=== PATIENT | female | born 1970 | race African-American/Black ===

== ENCOUNTER → 2020-01-23 10:59 | Outpatient (CLI) | payer OTHER, SELFPAY ==
--- NOTE | ~2020-01-23 | US_ITS ---
EXAMINATION: US thyroid DATE: 01/23/2020 11:16 INDICATION: Nontoxic goiter TECHNIQUE: Multiple ultrasound images of the thyroid were obtained. COMPARISON: Neck CT dated 01/25/09 FINDINGS: The right thyroid lobe measures 4.5 x 1.8 x 1.3 cm. The left thyroid lobe measures 3.8 x 1.0 x 1.3 c m. There is a single well-defined solid hypoechoic nodule measuring 4 x 3 x 5 mm without internal ec hogenic foci (TI-RADS 4, moderately suspicious , FNA if >=1.5 cm, annual followup is >1 cm) at the ju nction of the right thyroid lobe and isthmus. There is normal echotexture, echogenicity and vascular flow throughout the thyroid gland. IMPRESSION: 1. 5 mm TI-RADS 4 right thyroid nodule which remains below size threshold for biopsy or follow-up. Re commend clinical followup with repeat imaging if there are changes on physical exam. Reviewed, dictated and finalized at location A. IMPRESSION: 1. 5 mm TI-RADS 4 right thyroid nodule which remains below size threshold for b iopsy or follow-up. Recommend clinical followup with repeat imaging if there ar e changes on physical exam.
== END ==
PROVIDERS: Visit Provider Internal Medicine Endocrinology, Diabetes & Metabolism
DX: E04.9 Nontoxic goiter, unspecified (principal)
CPT/HCPCS: 76536

== ENCOUNTER → 2021-08-13 14:21 | Outpatient (CLI) | payer OTHER, SELFPAY ==
--- NOTE | ~2021-08-13 | MM_ITS ---
EXAMINATION: MM screening alexandra BI w george HISTORY: Screening mammogram TECHNIQUE: Craniocaudal and mediolateral oblique 3-D tomosynthesis images were obtained and synthetic 2-D images were generated. CAD analysis was submitted and interpreted. COMPARISON: 11/23/2018 bilateral digital screening mammogram BREAST PARENCHYMAL COMPOSITION: The breasts are heterogeneously dense, which may obscure small masses . FINDINGS: There is no evidence of suspicious mass, calcification, or architectural distortion to sugg est malignancy in either breast. There has been no suspicious interval change. IMPRESSION: 1. No mammographic evidence of malignancy. 2. Recommend routine screening mammography in one year. BI-RADS Category 1: Negative Reviewed, dictated and finalized at location A.
== END ==
PROVIDERS: PCP Nurse Practitioner Family; Visit Provider Nurse Practitioner Family
DX: Z12.31 Encounter for screening mammogram for malignant neoplasm of breast (principal)
CPT/HCPCS: 77063; 77067

== ENCOUNTER 2022-01-19 08:48 | Outpatient (CLI) | payer OTHER, SELFPAY ==
--- NOTE | ~2022-01-19 | DEXA_ITS ---
Bone Density Report Name: GERI RODGERS Age: 51 Sex: Female Ethnicity: Black Date of : 1970 Indication: postmenopausal; parental hip fracture; hysterectomy; rheumatoid arthritis; Referring Provider: SIERRARAMON Wright Study: Bone densitometry was performed. Exam Date: January 19, 2022 Accession number: [id number] Bone Density: Region BMD T-score Z-score Classification AP Spine (L1, L2) 1.026 0.4 0.4 Normal Femoral Neck (Left) 0.927 0.7 0.4 Normal Total Hip (Left) 1.039 0.8 0.4 Normal Total Hip Bilateral Avg 0.978 0.3 0.0 Normal Femoral Neck (Right) 0.871 0.2 0.0 Normal Total Hip (Right) 0.915 -0.2 -0.4 Normal World Health Organization criteria for BMD impression classify patients as: Normal (T-score at or above -1.0), Osteopenia (T-score between -1.0 and -2.5), or Osteoporosis (T-score at or below -2.5). 10-year Fracture Risk: FRAX not reported because: All T-scores for Spine Total, Hip Total, Femoral Neck at or above -1.0 Clinical Information Provided by Patient: Parent has had a hip fracture Has rheumatoid arthritis Has used the following medications: Vitamin D Has the following medical conditions: Hysterectomy, RA Patient maximum height was 66 Menopause Age: 33 No regular weight bearing exercise Does not regularly consume dairy products Drinks caffeinated beverages Onset of menses at age 16 Number of children 0 Impression: The patient has normal bone mass. The patient has risk factors, including: parental hip fracture. Discussion: BONE DENSITY IS ABOVE THE MINIMUM DESIRABLE LEVEL AT ALL SKELETAL SITES TESTED. This patient?s bone mineral density is above the minimum desirable level (T-score -1.0 or better) at all sites measured. The patient should follow a healthful lifestyle (good nutrition with adequate calcium and vitamin D, and appropriate weight-bearing exercise). Follow-Up: Consider repeating this study in 5 years or sooner if there is some new clinical indication. Reported by: [facility] on 01/19/2022 9:12:00 AM. Reviewed, dictated and finalized at location AAndria FRENCH
== END 2022-01-19 08:49 | disposition home or self-care (01) ==
LOC: ANHIMG 08:52
PROVIDERS: PCP Nurse Practitioner Family; Visit Provider Nurse Practitioner Family
DX: Z78.0 Asymptomatic menopausal state (principal)
CPT/HCPCS: 77080

== ENCOUNTER 2022-03-15 11:12 | Emergency (ER) | payer BC, SELFPAY ==
[2022-03-15] VITALS (27 sets, daily range): BP systolic 155–180; BP diastolic 86–101; PULSE 94–102; RESP 15–23; TEMP 36.9; O2SAT 96–100
--- NOTE | ~2022-03-15 | XR_ITS ---
EXAMINATION: XR chest 1V portable INDICATION: Cough and congestion, fever TECHNIQUE: Portable AP chest at 1152 hours COMPARISON: 05/08/2012 FINDINGS: The lungs are free of acute opacities. There is no pleural effusion or pneumothorax. The ca rdiomediastinal silhouette is normal. The visualized bones and soft tissues are unremarkable. IMPRESSION: 1. No acute cardiopulmonary abnormality. Reviewed, dictated and finalized at location A.
[2022-03-15 12:30] LABS: Influenza A QL RT-PCR Negative (Negative); Influenza B QL RT-PCR Negative (Negative); SARS-CoV-2 RNA PCR Negative
[2022-03-15] MEDS: ALBUTEROL SULFATE NEB 2.5 MG/0.5 ML INH 5 MG INHALATION (12:59)
[2022-03-15] MEDS: IPRATROPIUM BR 0.02% INH SOLN 0.5 MG/2.5 ML VIAL INHALATION (12:59)
--- NOTE | 2022-03-15 13:59 | ED.URI ---
HPI - URI/Sore Throat General Chief Complaint: Upper Respiratory Infection Stated Complaint: SOB, cough, fever Time Seen by Provider: 03/15/22 12:34 History of Present Illness HPI Narrative: Patient is a 51-year-old female who presents ER with cough and cold symptoms. Ongoing for 3 days. Associate with sinus congestion with postnasal drip and productive cough. Endorses fevers. No chest pain or chest pressure. No loss consciousness. Had asthma as a child but does not have lung disease currently. No alleviating factors. Has tried [id number] decongestants. Related Data Home Medications Medication Instructions Recorded Confirmed amitriptyline 09/17/19 amitriptyline 09/24/19 amlodipine 09/24/19 atorvastatin 09/24/19 cholecalciferol (vitamin D3) unit 09/24/19 [Dialyvite Vitamin D3 Max] dapagliflozin [Farxiga] mg 09/24/19 escitalopram oxalate mg 09/24/19 fenofibrate mg 09/24/19 folic acid 09/24/19 hydrocodone-acetaminophen 09/24/19 hydroxychloroquine 09/24/19 insulin lispro protamin-lispro SUBCUT 09/24/19 [Humalog Mix 75-25 KwikPen] lisinopril 09/24/19 losartan 09/24/19 metformin mg PO 09/24/19 methotrexate sodium 09/24/19 metronidazole VAGINAL 09/24/19 pregabalin 09/24/19 Allergies Allergy/AdvReac Type Severity Reaction Status Date / Time Penicillins Allergy Unknown Stopped Verified 11/30/19 17:16 Breathing Review of Systems Review of Systems: All systems reviewed & are unremarkable except as noted in HPI and below Constitutional: Constitutional: Reports chills, Reports fatigue and Reports fever(s) ENT: Reports nasal congestion and Reports sore throat Cardiovascular: Cardiovascular: Denies chest pain, Denies rapid heart rate and Denies radiating jaw, neck or arm pain Respiratory: Respiratory: Denies cough, Denies dyspnea and Denies wheezing Gastrointestinal: Gastrointestinal: Denies abdominal pain, Denies nausea and Denies vomiting [facility] Past Medical History Medical History (Updated 03/15/22 @ 14:04 by Octaviano Hull MD) Anemia Asthma Diabetes GERD (gastroesophageal reflux disease) Hyperlipemia Hypertension Pancreatitis Rheumatoid arthritis UTI (urinary tract infection) Surgical History Surgical History H/O left knee surgery History of cholecystectomy History of hysterectomy History of tonsillectomy Family History Family History (Updated 06/05/16 @ 23:19 by DOCTOR UNKNOWN) Father Family history of cataracts Asthma Family history of arthritis Family history of chronic obstructive pulmonary disease Family history of congestive heart failure Mother Cerebrovascular accident Family history of diabetes mellitus in first degree relative Sibling Family history of lung cancer Social History Social History Smoking status: Never smoker Alcohol intake: never Gender identity (if verbalized by the patient): Female Exam Narrative: GENERAL: Well-appearing, well-nourished, and in no acute distress. HEAD: Normocephalic, atraumatic. ENT: Mucous membranes moist. CHEST: End expiratory wheezing/Rales. No respiratory distress. HEART: Regular rate and rhythm. Normal peripheral pulses. EXTREMITIES: Normal range of motion. No edema. SKIN: Warm, dry, no rash. NEURO: Alert and oriented x3. PSYCH: Normal mood and affect. Course Course Emergency Course: Patient resting comfortably. Feels improved with nebulizer treatment. Discharge with steroids and albuterol. Discussed results. Vital Signs Vital signs: Vital Signs Temperature 98.4 F 03/15/22 11:19 Pulse Rate 102 H 03/15/22 11:19 Respiratory Rate 20 03/15/22 11:19 Blood Pressure 178/90 H 03/15/22 11:19 Pulse Oximetry 98 03/15/22 11:19 Temperature 98.4 F 03/15/22 11:19 Pulse Rate 98 03/15/22 13:10 Respiratory Rate 18 03/15/22 13:10 Bl
== END 2022-03-15 14:20 | disposition home or self-care (01) ==
PROVIDERS: Emergency Provider Emergency Medicine; PCP Nurse Practitioner Family
DX: B34.9 Viral infection, unspecified (principal); J20.9 Acute bronchitis, unspecified; E11.9 Type 2 diabetes mellitus without complications; J45.909 Unspecified asthma, uncomplicated; I10 Essential (primary) hypertension; E78.5 Hyperlipidemia, unspecified; M06.9 Rheumatoid arthritis, unspecified; Z87.440 Personal history of urinary (tract) infections; Z86.2 Personal history of diseases of the blood and blood-forming organs and certain disorders involving the immune mechanism; Z79.84 Long term (current) use of oral hypoglycemic drugs; Z79.4 Long term (current) use of insulin
CPT/HCPCS: 71045; 87502; 94640; 99283; C9803; U0003; U0005

== ENCOUNTER 2022-08-23 13:57 | Emergency (ER) | payer BC, SELFPAY ==
[2022-08-23 14:48] VITALS: BP 129/75; PULSE 105; RESP 20; TEMP 36.4; O2SAT 100
--- NOTE | 2022-08-23 14:53 | ECG_ITS ---
Measurements Intervals [place] Rate: 103 P: 55 NM: 152 QRS: 25 QRSD: 107 T: 60 QT: 329 QTc: 432 Interpretive Statements SINUS TACHYCARDIA BASELINE ARTIFACT NONSPECIFIC T-WAVE ABNORMALITY BORDERLINE ECG COMPARED TO ECG 09/24/2019 16:56:26 T-WAVE ABNORMALITY NOW PRESENT Electronically Signed On 08-23-2022 16:03:03 CDT by Tushar Oliveros M.D.
[2022-08-23 15:07] LABS: Basophils Absolute Auto 0.1 K/mm3 (0.0-0.1); Basophils Percent Auto 1.4 % (0.2-1.2); Eosinophils Absolute Auto 0.1 K/mm3 (0-0.3); Eosinophils Percent Auto 0.8 % (0-4.4); Hematocrit 31.8 % (37.0-47.0); Hemoglobin 9.6 g/dL (12.0-15.0); Immature Granulocyte Absolute 0.03 K/mm3 (0.00-0.031); Immature Granulocyte Percent A 0.3 % (0-0.5); Immature Platelet Fraction Pct 10.9 % (0.9-11.2); Lymphocytes Absolute Auto 1.39 K/mm3 (0.9-3.2); Lymphocytes Percent Auto 15.4 % (18.3-44.2); Mean Corpuscular HGB Conc 30.2 g/dl (32-36); Mean Corpuscular Hemoglobin 18.4 pg (26-34); Monocytes Absolute Auto 0.5 K/mm3 (0.1-0.6); Monocytes Percent Auto 5.2 % (2.6-8.5); Neutrophils Absolute Auto 6.9 K/mm3 (1.3-6.7); Neutrophils Percent Auto 76.9 % (45.5-73.1); Platelet Count Result 348 k/mm3 (150-375); Red Blood Count 5.21 M/mm3 (4.2-5.4); Red Cell Distribution Width 17.8 % (11.5-14.5)
[2022-08-23 15:15] LABS: Alanine Aminotransferase 12 U/L (6-35); Albumin Level 4.6 g/dL (3.5-5.1); Alkaline Phosphatase 98 U/L (38-126); Anion Gap 12 mmol/L (8-16); Aspartate Amino Transferase 22 U/L (14-36); Bilirubin,Total 0.4 mg/dL (0.2-1.3); Blood Urea Nitrogen 16 mg/dL (7-17); Calcium 9.3 mg/dL (8.4-10.2); Carbon Dioxide 24 mmol/L (22-30); Chloride 105 mmol/L (98-107); Estimated CRCL calculation 72 ml/min; Estimated Glomerular Filt Rate > 60; Glucose 115 mg/dL (65-110); Potassium 3.5 mmol/L (3.4-5.0); Sodium 141 mmol/L (137-145)
[2022-08-23 15:47] LABS: Platelet Estimate Adequate (Adequate)
[2022-08-23 15:48] LABS: Anisocytosis 2+ (NORMAL); Hypochromasia 1+ (NORMAL); Schistocytes None Seen (NORMAL)
--- NOTE | 2022-08-23 19:10 | PC.NURSE ---
patient called for room placement without answer at this time.
== END 2022-08-23 19:10 | disposition left against medical advice (07) ==
PROVIDERS: Emergency Provider Emergency Medicine; PCP Nurse Practitioner Family
DX: R42 Dizziness and giddiness (principal)
CPT/HCPCS: 36415; 80053; 85025; 85055; 93005; 99199

== ENCOUNTER 2022-09-13 11:31 | Observation (INO) | payer BC, SELFPAY ==
--- NOTE | ~2022-09-13 | XR_ITS ---
XR knee LT min 4V DATE: 09/13/2022 13:53 INDICATION: Pain for 1.5 months. Swelling. Rheumatoid arthritis. TECHNIQUE: [place] and standing AP and lateral views COMPARISON: None FINDINGS: There is moderate suprapatellar knee joint effusion. There is osteopenia. No fracture or dislocation, periosteal reaction or bone destruction, radiopaque intra-articular loose body or chondrocalcinosis. Knee joint spaces are relatively preserved. There is patellofemoral peria rticular spurring consistent with osteoarthritis. Medial and lateral compartment joint spaces are rel atively preserved. There is enthesopathy of the patella at the quadriceps and patellar tendon insertion sites. IMPRESSION: Moderate suprapatellar knee joint effusion Mild osteopenia Osteoarthritis involving primarily the patellofemoral compartment Reviewed, dictated and finalized at location A. WILLOW OPERATOR
--- NOTE | ~2022-09-13 | XR_ITS ---
XR knee RT min 4V DATE: 09/13/2022 13:54 INDICATION: Pain and edema for 1.5 months. Rheumatoid arthritis. TECHNIQUE: [place], standing AP, PA and lateral views COMPARISON: None FINDINGS: There is prominent suprapatellar knee joint effusion. Medial lateral compartment joint spaces are preserved. There is joint space narrowing and prominent p eriarticular spurring of the patellofemoral joint consistent with osteoarthritis. There is enthesopathy of the patella at the quadriceps and patellar tendon insertions. No fracture, dislocation, periosteal reaction or bone destruction, radiopaque intra-articular loose b munira or chondrocalcinosis is noted. IMPRESSION: Prominent suprapatellar knee joint effusion Prominent osteoarthritis of the patellofemoral joint Reviewed, dictated and finalized at location A. ER SCANNING TECHNICIAN
[2022-09-13 11:32] VITALS: BP 160/94; PULSE 114; RESP 18; TEMP 36.8; O2SAT 100
--- NOTE | 2022-09-13 15:08 | ED.LOWEXIN ---
HPI - Extremity Injury (Lower) General Chief Complaint: Extremity Injury, Lower <Bee Rice PA-C - Last Filed: 09/13/22 20:23> Stated Complaint: RA flare up <SHAE Borrero Last Filed: 09/13/22 20:23> Time Seen by Provider: 09/13/22 13:38 <SHAE Borrero Last Filed: 09/13/22 20:23> Source: patient <SHAE Borrero Last Filed: 09/13/22 20:23> Mode of arrival: ambulatory <SHAE Borrero Last Filed: 09/13/22 20:23> Limitations: no limitations <SHAE Borrero Last Filed: 09/13/22 20:23> History of Present Illness HPI Narrative: Patient is a 51-year-old female who presents the ED with report of bilateral knee pain and swelling. Patient has a history of rheumatoid arthritis and assumed she was having a flare. She states she has had persistent pain for the past 1 to 2 months. She has significant pain with any movement, bearing weight. Pain worse in the right knee over the last couple days and also noticed some warmth to R knee. Denies any fevers. Denies nausea, vomiting, pain elsewhere. Patient is scheduled to see a new junior systems administrator on 10/06. <SHAE Borrero Last Filed: 09/13/22 20:23> Related Data Home Medications: Home Medications Medication Instructions Recorded Confirmed amitriptyline 50 mg tablet 75 mg PO HS 09/17/19 09/13/22 amlodipine 5 mg tablet 5 mg PO DAILY 09/24/19 09/13/22 atorvastatin 40 mg tablet 40 mg PO DAILY 09/24/19 09/13/22 cholecalciferol (vitamin D3) 1,250 50,000 unit PO WEEKLY 09/24/19 09/13/22 mcg (50,000 unit) tablet (Dialyvite Vitamin D3 Max) dapagliflozin 10 mg tablet 10 mg PO DAILY 09/24/19 09/13/22 ([facility]) fenofibrate 160 mg tablet 160 mg PO DAILY 09/24/19 09/13/22 folic acid 1 mg tablet 1 mg PO DAILY 09/24/19 09/13/22 hydrocodone 5 mg-acetaminophen 325 See Rx Instructions .Route 09/24/19 09/13/22 mg tablet .COMPLEX PRN Pain hydroxychloroquine 200 mg tablet 200 mg PO DAILY 09/24/19 09/13/22 lisinopril 40 mg tablet 40 mg PO DAILY 09/24/19 09/13/22 losartan 50 mg tablet 50 mg PO DAILY 09/24/19 09/13/22 metformin 500 mg tablet,extended 500 mg PO DAILY 09/24/19 09/13/22 release 24 hr methotrexate sodium 2.5 mg tablet 2.5 mg PO WEEKLY 09/24/19 09/13/22 pregabalin 75 mg capsule 75 mg PO DAILY 09/24/19 09/13/22 adalimumab 40 mg/0.4 mL 28 mg subcut DAILY 09/13/22 09/13/22 subcutaneous pen kit (Humira(CF) Pen) semaglutide 0.25 mg or 0.5 mg (2 0.5 mg subcut WEEKLY 09/13/22 09/13/22 mg/1.5 mL) subcutaneous pen injector (Ozempic) <Bee Rice PA-C - Last Filed: 09/13/22 20:23> Allergies/Adverse Reactions: Allergies Allergy/AdvReac Type Severity Reaction Status Date / Time Penicillins Allergy Unknown Stopped Verified 09/13/22 11:38 Breathing <Bee Rice PA-C - Last Filed: 09/13/22 20:23> Review of Systems Review of Systems: CONSTITUTIONAL: Denies fever, chills, or sweats. CARDIOVASCULAR: Denies chest pain. RESPIRATORY: Denies dyspnea. GASTROINTESTINAL: Denies abdominal pain, nausea, vomiting. SKIN: Reports swelling to bilateral knees, warmth to R knee. MUSCULOSKELETAL: Reports bilateral knee pain. NEUROLOGIC: Denies tingling, numbness, or weakness. <Bee Rice PA-C - Last Filed: 09/13/22 20:23> All systems reviewed & are unremarkable except as noted in HPI and below <Bee Rice PA-C - Last Filed: 09/13/22 20:23> [facility] Past Medical History Medical History: Medical History (Updated 09/14/22 @ 02:11 by Yumiko Aleman MD) Anemia Asthma Diabetes GERD (gastroesophageal reflux disease) Hyperlipemia Hypertension Pancreatitis Rheumatoid arthritis UTI (urinary tract infection) <Bee Rice PA-C - Last Filed: 09/13/22 20:23> Surgical History Surgical History: Surgical History H/O left knee surg
[2022-09-13 15:26] LABS: Basophils Absolute Auto 0.1 K/mm3 (0.0-0.1); Basophils Percent Auto 1.5 % (0.2-1.2); Eosinophils Absolute Auto 0.1 K/mm3 (0-0.3); Eosinophils Percent Auto 2.1 % (0-4.4); Hematocrit 29.4 % (37.0-47.0); Hemoglobin 8.9 g/dL (12.0-15.0); Immature Granulocyte Absolute 0.02 K/mm3 (0.00-0.031); Immature Granulocyte Percent A 0.3 % (0-0.5); Immature Platelet Fraction Pct 8.6 % (0.9-11.2); Lymphocytes Absolute Auto 1.17 K/mm3 (0.9-3.2); Lymphocytes Percent Auto 19.1 % (18.3-44.2); Mean Corpuscular HGB Conc 30.3 g/dl (32-36); Mean Corpuscular Hemoglobin 18.6 pg (26-34); Mean Corpuscular Volume 61.5 fl (80-100); Mean Platelet Volume 10.2 fl (7.4-10.4); Monocytes Absolute Auto 0.3 K/mm3 (0.1-0.6); Monocytes Percent Auto 5.1 % (2.6-8.5); Neutrophils Absolute Auto 4.4 K/mm3 (1.3-6.7); Neutrophils Percent Auto 71.9 % (45.5-73.1); Platelet Count Result 311 k/mm3 (150-375); Red Blood Count 4.78 M/mm3 (4.2-5.4); Red Cell Distribution Width 18.3 % (11.5-14.5); White Blood Count 6.1 K/mm3 (4.5-10.0)
[2022-09-13 15:34] LABS: Alanine Aminotransferase 11 U/L (6-35); Albumin Level 4.2 g/dL (3.5-5.1); Alkaline Phosphatase 94 U/L (38-126); Anion Gap 12 mmol/L (8-16); Aspartate Amino Transferase 17 U/L (14-36); Bilirubin,Total 0.3 mg/dL (0.2-1.3); Blood Urea Nitrogen 10 mg/dL (7-17); Calcium 8.5 mg/dL (8.4-10.2); Carbon Dioxide 25 mmol/L (22-30); Chloride 104 mmol/L (98-107); Estimated CRCL calculation 117 ml/min; Estimated Glomerular Filt Rate > 60; Glucose 134 mg/dL (65-110); Potassium 3.2 mmol/L (3.4-5.0); Sodium 141 mmol/L (137-145)
[2022-09-13 15:41] LABS: Platelet Estimate Adequate (Adequate)
[2022-09-13 15:42] LABS: Microcytosis 2+ (NORMAL); Ovalocytes 1+ (NORMAL); Schistocytes None Seen (NORMAL); Target Cells 1+ (NORMAL)
[2022-09-13 19:19] LABS: Color Synovial Fluid Yellow (Colorless); Crystals Synovial Fluid None Seen (None Seen); Source Synovial Fluid Synovial fluid
[2022-09-13 19:20] LABS: Appearance Synovial Fluid Hazy (Clear); RBC Synovial Fluid 2387 /uL (0-0)
[2022-09-13 19:22] LABS: Lymphocytes Synovial Fluid 7 %; Monocytes Synovial Fluid 8 %; Neutrophils Synovial Fluid 85 % (0-25)
--- NOTE | 2022-09-13 20:00 | PM.IMHP ---
H&P: HPI History of Present Illness Date/Time: 09/13/22 20:00 Chief Complaint: Right knee pain Narrative: This is a 51-year-old female with past medical history significant for rheumatoid arthritis, type diabetes mellitus, hypertension, dyslipidemia. Patient presents to the emergency room due to right knee swelling and tenderness which has been progressively getting worse over the course of the last 2 weeks states that a feels tight and she was not able to tie her shoelaces. Denies any fevers, rigors, chills, nausea, vomiting, abdominal pain, rashes. patient with bilateral knee effusion however right knee since to be the bothering her. Patient just recently changed blanket washer but has not been able to get a closer appointment and was advised to come to the emergency room. In emergency room patient had her knee tap and was given antibiotics. Any x-ray was reported as: IMPRESSION: Prominent suprapatellar knee joint effusion Prominent osteoarthritis of the patellofemoral joint? Review of Systems Review of Systems: right knee tenderness, swelling Constitutional: Constitutional: Denies chills, Denies fatigue, Denies fever(s), Denies malaise, Denies night sweats, Denies poor appetite and Denies weakness Eyes: Eyes: Denies change in vision ENT: Denies dysphagia, Denies vertigo, Denies dizziness and Denies odynophagia Cardiovascular: Cardiovascular: Denies chest pain, Denies leg ulcers, Denies dyspnea and Denies dyspnea on exertion Respiratory: Respiratory: Denies chest congestion, Denies cough, Denies dyspnea and Denies dyspnea on exertion Gastrointestinal: Gastrointestinal: Denies abdominal pain, Denies dyspepsia, Denies heartburn, Denies diarrhea, Denies loose stools, Denies nausea and Denies vomiting Genitourinary: Genitourinary: Denies dysuria Musculoskeletal: Musculoskeletal: Denies back pain, Denies myalgias, Reports deformity, Reports arthralgias, Reports joint swelling, Denies muscle weakness and Reports other ( swelling of the right knee) Integumentary/Breasts: Skin/Breast: Denies rash Neurologic: Denies vertigo, Denies dizziness, Denies syncope, Denies focal weakness and Denies Sensory deficit (Neuro) Psychiatric: Psychiatric: Reports no additional psychiatric complaints and Reports as per HPI Endocrine: Endocrine: Denies cold intolerance, Denies flushing, Denies heat intolerance, Denies polyphagia, Denies polydipsia and Denies palpitations Hematologic/Lymphatic: Hematologic/Lymphatic: Reports no additional hematologic/lymphatic complaints and Reports as per HPI Allergic/Immunologic: Allergic/Immunologic: Reports no additional allergic/immunologic complaints and Reports as per HPI [facility] Past Medical History Medical History (Updated 09/14/22 @ 02:11 by Yumiko Aleman MD) Anemia Asthma Diabetes GERD (gastroesophageal reflux disease) Hyperlipemia Hypertension Pancreatitis Rheumatoid arthritis UTI (urinary tract infection) Surgical History Surgical History H/O left knee surgery History of cholecystectomy History of hysterectomy History of tonsillectomy Family History Family History (Updated 06/05/16 @ 23:19 by DOCTOR UNKNOWN) Father Family history of cataracts Asthma Family history of arthritis Family history of chronic obstructive pulmonary disease Family history of congestive heart failure Mother Cerebrovascular accident Family history of diabetes mellitus in first degree relative Sibling Family history of lung cancer Social History Social History Smoking status: Never smoker Alcohol intake: never Substance use: never Has the Lack of Transportation Kept You From Medical Appointments or From Getting Medications?: Yes Within the Past 12 Months, Were You Worried Whether Your Food Would Run Out Before You Got Money to Buy More?: Sometimes True What is
[2022-09-13 20:04] VITALS: BP 146/93; PULSE 96; RESP 18; TEMP 36.7; O2SAT 100
[2022-09-13 20:12] LABS: CRP 2.9 mg/dL (<1.0)
[2022-09-13] MEDS: AZTREONAM 2 GM in SODIUM CHLORIDE 0.9% IV 100 ML 200 ML IVPB (20:33)
[2022-09-13] MEDS: POTASSIUM CHLORIDE 20 MEQ TABLET 40 MEQ PO (20:36)
[2022-09-13 20:41] LABS: Erythrocyte Sedimentation Rate 64 mm/hr (0-20)
[2022-09-13 20:50] LABS: SARS-CoV-2 RNA PCR Negative
[2022-09-13 22:05] VITALS: BP 140/85; PULSE 92; RESP 19; O2SAT 100
[2022-09-13 22:08] VITALS: BMI 35.8
[2022-09-14] MEDS: METHOTREXATE 2.5 MG TAB (*CHEMO) PO (03:52)
[2022-09-14] MEDS: AZTREONAM 2 GM in SODIUM CHLORIDE 0.9% IV 100 ML 200 ML IVPB ×3 (03:52→21:05)
[2022-09-14 06:00] VITALS: BP 140/80; PULSE 90; RESP 19; TEMP 36.6; O2SAT 98
[2022-09-14 06:44] LABS: Estimated CRCL calculation 113 ml/min; Estimated Glomerular Filt Rate > 60
[2022-09-14] MEDS: PREGABALIN (*CRX) 75 MG CAPSULE PO (08:24)
[2022-09-14] MEDS: HYDROXYCHLOROQUINE SULFATE 200 MG TABLET PO (08:25)
[2022-09-14] MEDS: amLODIPine BESYLATE 5 MG TABLET PO (08:25)
[2022-09-14] MEDS: ENOXAPARIN 40 MG/0.4 ML SYRINGE SUB-Q (08:25)
[2022-09-14] MEDS: ATORVASTATIN 40 MG TABLET PO (08:25)
[2022-09-14] MEDS: FENOFIBRATE 160 MG TABLET PO (08:26)
[2022-09-14] MEDS: FOLIC ACID 1 MG TABLET PO (08:26)
[2022-09-14] MEDS: lisinopriL 20 MG TABLET 40 MG PO (08:26)
[2022-09-14 08:29] LABS: Glucose Point of Care 102 mg/dl (65-105)
[2022-09-14 08:45] LABS: Basophils Absolute Auto 0.1 K/mm3 (0.0-0.1); Basophils Percent Auto 1.7 % (0.2-1.2); Eosinophils Absolute Auto 0.1 K/mm3 (0-0.3); Eosinophils Percent Auto 2.1 % (0-4.4); Hematocrit 29.4 % (37.0-47.0); Hemoglobin 8.8 g/dL (12.0-15.0); Immature Granulocyte Absolute 0.01 K/mm3 (0.00-0.031); Immature Granulocyte Percent A 0.2 % (0-0.5); Immature Platelet Fraction Pct 8.4 % (0.9-11.2); Lymphocytes Absolute Auto 1.18 K/mm3 (0.9-3.2); Lymphocytes Percent Auto 22.3 % (18.3-44.2); Mean Corpuscular HGB Conc 29.9 g/dl (32-36); Mean Corpuscular Hemoglobin 18.4 pg (26-34); Mean Corpuscular Volume 61.4 fl (80-100); Mean Platelet Volume 10.5 fl (7.4-10.4); Monocytes Absolute Auto 0.3 K/mm3 (0.1-0.6); Monocytes Percent Auto 6.1 % (2.6-8.5); Neutrophils Absolute Auto 3.6 K/mm3 (1.3-6.7); Neutrophils Percent Auto 67.6 % (45.5-73.1); Platelet Count Result 305 k/mm3 (150-375); Red Blood Count 4.79 M/mm3 (4.2-5.4); Red Cell Distribution Width 18.1 % (11.5-14.5); White Blood Count 5.3 K/mm3 (4.5-10.0)
[2022-09-14 09:04] LABS: Alanine Aminotransferase 9 U/L (6-35); Alkaline Phosphatase 89 U/L (38-126); Anion Gap 12 mmol/L (8-16); Aspartate Amino Transferase 15 U/L (14-36); Bilirubin,Total 0.3 mg/dL (0.2-1.3); Blood Urea Nitrogen 10 mg/dL (7-17); Calcium 8.9 mg/dL (8.4-10.2); Carbon Dioxide 26 mmol/L (22-30); Chloride 103 mmol/L (98-107); Estimated CRCL calculation 113 ml/min; Estimated Glomerular Filt Rate > 60; Glucose 102 mg/dL (65-110); Sodium 141 mmol/L (137-145)
[2022-09-14 11:17] LABS: Hypochromasia 1+ (NORMAL); Microcytosis 1+ (NORMAL); Ovalocytes 2+ (NORMAL); Platelet Estimate Adequate (Adequate); Schistocytes None Seen (NORMAL)
[2022-09-14 11:48] LABS: Glucose Point of Care 109 mg/dl (65-105)
[2022-09-14 14:00] VITALS: BP 142/83; PULSE 92; RESP 14; TEMP 36.1; O2SAT 100
--- NOTE | 2022-09-14 14:24 | PM.CNOR ---
Assessment and Plan Assessment and plan (1) Effusion, right knee: Code(s): M25.461 - Effusion, right knee <JHONNY Umaña - Last Filed: 09/14/22 15:38> Status: Acute <JHONNY Umaña - Last Filed: 09/14/22 15:38> Assessment and Plan: Patient seen and examined. Bilateral knee effusions consistent with rheumatoid arthritis flare. Also severe degenerative changes at the patellofemoral joint. Awaiting final culture results. If cultures remain negative tomorrow, I recommend repeat aspiration and injection with cortisone. Discussed the risks, benefits, and alternatives with the patient. <Weston Mendosa MD - Last Filed: 09/14/22 18:19> (2) Effusion of left knee joint: Code(s): M25.462 - Effusion, left knee <JHONNY Umaña - Last Filed: 09/14/22 15:38> Status: Acute <JHONNY Umaña - Last Filed: 09/14/22 15:38> (3) Rheumatoid arthritis: Qualifiers: Rheumatoid arthritis location: unspecified site Rheumatoid factor presence: unspecified presence Qualified Code(s): M06.9 - Rheumatoid arthritis, unspecified <JHONNY Umaña - Last Filed: 09/14/22 15:38> Code(s): M06.9 - Rheumatoid arthritis, unspecified <JHONNY Umaña - Last Filed: 09/14/22 15:38> Status: Acute <JHONNY Umaña - Last Filed: 09/14/22 15:38> (4) Diabetes mellitus: Qualifiers: Diabetes mellitus complication status: without complication Diabetes mellitus computer tape librarian insulin use: with jail use Diabetes mellitus type: type 2 Qualified Code(s): E11.9 - Type 2 diabetes mellitus without complications; 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 Right worse then left. Both painful. No known injury. Radiographs of both knees reviewed showing moderate to severe patellofemoral arthritis. Right worse then left. She stood up from her bed on 09/13/22 and her right knee gave out prompting her to come to the ER. She has had pain and intermittent swelling her her knees for the last 2 months. She was not happy with the care of her RA and is in the process of switching doctors. She has an apt. at the end of this month with her new production illustrator. CRP and ESR are elevated. Aspiration in the ER showed hazy fluid with WBC 16134 and neutrophils 85. Concern for septic arthritis. Patient is Diabetic but has been well controlled. No organisms seen on preliminary cultures. Likely inflammatory. Will continue monitoring cultures. Consider aspiration and steroid injection tomorrow. <JHONNY Umaña - Last Filed: 09/14/22 15:38> History of Present Illness HPI Consult date: 09/14/22 <JHONNY Umaña - Last Filed: 09/14/22 15:38> 09/14/22 <Weston Mendosa MD - Last Filed: 09/14/22 18:19> Chief complaint: septic arthritis of r knee,ra,dm <JHONNY Umaña - Last Filed: 09/14/22 15:38> Narrative: Patient complains of bilateral, right worse then left, knee pain. She has had pain for the last 2 months. She decided to switch RA doctors because they kept telling her to take more Methotrexate and it was not helping. She is in the process of switching her production illustrator. She notes her knees have been swelling intermittently. She got up from bed on 09/13/22 and her knee buckled. She had severe pain and went to the ER. Both knees are hurting her at the moment. Right is worse then left. Her Diabetes have been well controlled. She has a history of knee injections a few years ago with her PCP. No pain in any other joints. No fever. No CP, SOB, Abd pain. No urinary symptoms. Ad
--- NOTE | 2022-09-14 15:27 | PM.IMPN ---
Progress Note: A&P Assessment and Plan (1) Effusion, right knee: Code(s): M25.461 - Effusion, right knee Status: Acute Assessment and Plan: s/p I&D. cultures pending so far. Continue aztreonam, vancomycin (2) Hypertension: Code(s): I10 - Essential (primary) hypertension Status: Acute Assessment and Plan: stable. Continue home medications (3) GERD (gastroesophageal reflux disease): Code(s): K21.9 - Gastro-esophageal reflux disease without esophagitis Status: Acute (4) Rheumatoid arthritis: Qualifiers: Rheumatoid arthritis location: unspecified site Rheumatoid factor presence: unspecified presence Qualified Code(s): M06.9 - Rheumatoid arthritis, unspecified Code(s): M06.9 - Rheumatoid arthritis, unspecified Status: Acute Assessment and Plan: continue home medications (5) Diabetes mellitus: Qualifiers: Diabetes mellitus complication status: without complication Diabetes mellitus intermediate designer insulin use: with group home use Diabetes mellitus type: type 2 Qualified Code(s): E11.9 - Type 2 diabetes mellitus without complications; Z79.4 - meterman (current) use of insulin Code(s): E11.9 - Type 2 diabetes mellitus without complications Status: Acute Assessment and Plan: continue insulin Subjective Date/time seen: 09/14/22 15:27 no complaints at this time Review of Systems Review of Systems: right knee tenderness, swelling Constitutional: Constitutional: Denies chills, Denies fatigue, Denies fever(s), Denies malaise, Denies night sweats, Denies poor appetite and Denies weakness Eyes: Eyes: Denies change in vision ENT: Denies dysphagia, Denies vertigo, Denies dizziness and Denies odynophagia Cardiovascular: Cardiovascular: Denies chest pain, Denies leg ulcers, Denies dyspnea and Denies dyspnea on exertion Respiratory: Respiratory: Denies chest congestion, Denies cough, Denies dyspnea and Denies dyspnea on exertion Gastrointestinal: Gastrointestinal: Denies abdominal pain, Denies dyspepsia, Denies heartburn, Denies diarrhea, Denies loose stools, Denies nausea and Denies vomiting Genitourinary: Genitourinary: Denies dysuria Musculoskeletal: Musculoskeletal: Denies back pain, Denies myalgias, Reports deformity, Reports arthralgias, Reports joint swelling, Denies muscle weakness and Reports other ( swelling of the right knee) Integumentary/Breasts: Skin/Breast: Denies rash Neurologic: Denies vertigo, Denies dizziness, Denies syncope, Denies focal weakness and Denies Sensory deficit (Neuro) Psychiatric: Psychiatric: Reports no additional psychiatric complaints and Reports as per HPI Endocrine: Endocrine: Denies cold intolerance, Denies flushing, Denies heat intolerance, Denies polyphagia, Denies polydipsia and Denies palpitations Hematologic/Lymphatic: Hematologic/Lymphatic: Reports no additional hematologic/lymphatic complaints and Reports as per HPI Allergic/Immunologic: Allergic/Immunologic: Reports no additional allergic/immunologic complaints and Reports as per HPI Exam Narrative: Patient is laying in bed Const: General: comfortable, no acute distress, well developed, alert, awake and average body habitus Nutritional Appearance: average body habitus Orientation/consciousness: patient oriented x3 HENMT: Head: normal to inspection, normocephalic and atraumatic Ears: hearing grossly normal bilaterally Face/Nose/Sinus: normal facial exam Face and sinus: normal facial exam Eyes: General: appearance normal, both eyes and all related structures Pupils: Equal, round and reactive pupils present EOM: EOMs intact bilaterally Neck: Neck: full ROM, no lymphadenopathy and no JVD Thyroid: thyroid normal Lymphatic: no lymphadenopathy noted Resp: Effort & Inspection: normal respiratory effort and able to speak in complete sentences Auscultation: clear to auscultation bilaterally Cardio: Jugular venou
[2022-09-14 16:59] LABS: Glucose Point of Care 66 mg/dl (65-105)
[2022-09-14 17:32] LABS: Glucose Point of Care 109 mg/dl (65-105)
[2022-09-14] MEDS: AMITRIPTYLINE HCL 25 MG TABLET 75 MG PO (21:06)
[2022-09-14 21:17] LABS: Glucose Point of Care 131 mg/dl (65-105)
[2022-09-14 21:43] VITALS: BP 146/88; PULSE 90; RESP 16; TEMP 36.2; O2SAT 100
[2022-09-15] MEDS: AZTREONAM 2 GM in SODIUM CHLORIDE 0.9% IV 100 ML 200 ML IVPB ×3 (03:12→20:30)
[2022-09-15 06:00] VITALS: BP 126/69; PULSE 84; RESP 14; TEMP 36.9; O2SAT 100
[2022-09-15 07:43] LABS: Glucose Point of Care 95 mg/dl (65-105)
[2022-09-15 08:45] LABS: Vancomycin Trough 10.2 ug/mL (10.0-20.0)
[2022-09-15] MEDS: PREGABALIN (*CRX) 75 MG CAPSULE PO (09:24)
[2022-09-15] MEDS: ATORVASTATIN 40 MG TABLET PO (09:24)
[2022-09-15] MEDS: FENOFIBRATE 160 MG TABLET PO (09:24)
[2022-09-15] MEDS: amLODIPine BESYLATE 5 MG TABLET PO (09:24)
[2022-09-15] MEDS: FOLIC ACID 1 MG TABLET PO (09:24)
[2022-09-15] MEDS: HYDROXYCHLOROQUINE SULFATE 200 MG TABLET PO (09:24)
[2022-09-15] MEDS: INSULIN ASPART (*BKC) 100 UNITS/ML SUB-Q ×2 (09:25→12:18)
[2022-09-15] MEDS: lisinopriL 20 MG TABLET 40 MG PO (09:25)
[2022-09-15] MEDS: ENOXAPARIN 40 MG/0.4 ML SYRINGE SUB-Q (09:26)
[2022-09-15 11:27] LABS: Glucose Point of Care 99 mg/dl (65-105)
--- NOTE | 2022-09-15 11:40 | PM.IMPN ---
Progress Note: A&P Assessment and Plan (1) Effusion, right knee: Code(s): M25.461 - Effusion, right knee Status: Acute Assessment and Plan: s/p I&D. Ortho on board. gram stain negative. cultures pending. Continue aztreonam, vancomycin. If cultures are negative will discontinue antibiotics. (2) Hypertension: Code(s): I10 - Essential (primary) hypertension Status: Acute Assessment and Plan: stable. Continue home medications (3) Rheumatoid arthritis: Qualifiers: Rheumatoid arthritis location: unspecified site Rheumatoid factor presence: unspecified presence Qualified Code(s): M06.9 - Rheumatoid arthritis, unspecified Code(s): M06.9 - Rheumatoid arthritis, unspecified Status: Acute Assessment and Plan: continue home medications (4) Diabetes mellitus: Qualifiers: Diabetes mellitus complication status: without complication Diabetes mellitus jail insulin use: with jail use Diabetes mellitus type: type 2 Qualified Code(s): E11.9 - Type 2 diabetes mellitus without complications; Z79.4 - halfway (current) use of insulin Code(s): E11.9 - Type 2 diabetes mellitus without complications Status: Acute Assessment and Plan: continue insulin Subjective Date/time seen: 09/15/22 11:40 no complaint at this time Review of Systems Review of Systems: right knee tenderness, swelling Constitutional: Constitutional: Denies chills, Denies fatigue, Denies fever(s), Denies malaise, Denies night sweats, Denies poor appetite and Denies weakness Eyes: Eyes: Denies change in vision ENT: Denies dysphagia, Denies vertigo, Denies dizziness and Denies odynophagia Cardiovascular: Cardiovascular: Denies chest pain, Denies leg ulcers, Denies dyspnea and Denies dyspnea on exertion Respiratory: Respiratory: Denies chest congestion, Denies cough, Denies dyspnea and Denies dyspnea on exertion Gastrointestinal: Gastrointestinal: Denies abdominal pain, Denies dyspepsia, Denies heartburn, Denies diarrhea, Denies loose stools, Denies nausea and Denies vomiting Genitourinary: Genitourinary: Denies dysuria Musculoskeletal: Musculoskeletal: Denies back pain, Denies myalgias, Reports deformity, Reports arthralgias, Reports joint swelling, Denies muscle weakness and Reports other ( swelling of the right knee) Integumentary/Breasts: Skin/Breast: Denies rash Neurologic: Denies vertigo, Denies dizziness, Denies syncope, Denies focal weakness and Denies Sensory deficit (Neuro) Psychiatric: Psychiatric: Reports no additional psychiatric complaints and Reports as per HPI Endocrine: Endocrine: Denies cold intolerance, Denies flushing, Denies heat intolerance, Denies polyphagia, Denies polydipsia and Denies palpitations Hematologic/Lymphatic: Hematologic/Lymphatic: Reports no additional hematologic/lymphatic complaints and Reports as per HPI Allergic/Immunologic: Allergic/Immunologic: Reports no additional allergic/immunologic complaints and Reports as per HPI Exam Narrative: Patient is laying in bed Const: General: comfortable, no acute distress, well developed, alert, awake and average body habitus Nutritional Appearance: average body habitus Orientation/consciousness: patient oriented x3 HENMT: Head: normal to inspection, normocephalic and atraumatic Ears: hearing grossly normal bilaterally Face/Nose/Sinus: normal facial exam Face and sinus: normal facial exam Eyes: General: appearance normal, both eyes and all related structures Pupils: Equal, round and reactive pupils present EOM: EOMs intact bilaterally Neck: Neck: full ROM, no lymphadenopathy and no JVD Thyroid: thyroid normal Lymphatic: no lymphadenopathy noted Resp: Effort & Inspection: normal respiratory effort and able to speak in complete sentences Auscultation: clear to auscultation bilaterally Cardio: Jugular venous distension: no JVD Rate: regular rate Rhythm: reg
[2022-09-15 14:00] VITALS: BP 154/81; PULSE 100; RESP 16; TEMP 35.7; O2SAT 100
--- NOTE | 2022-09-15 14:44 | PM.PNORT ---
Progress Note: A&P Assessment and Plan (1) Effusion, right knee: Code(s): M25.461 - Effusion, right knee Status: Acute (2) Effusion of left knee joint: Code(s): M25.462 - Effusion, left knee Status: Acute (3) Rheumatoid arthritis: Qualifiers: Rheumatoid arthritis location: unspecified site Rheumatoid factor presence: unspecified presence Qualified Code(s): M06.9 - Rheumatoid arthritis, unspecified Code(s): M06.9 - Rheumatoid arthritis, unspecified Status: Acute (4) Diabetes mellitus: Qualifiers: Diabetes mellitus complication status: without complication Diabetes mellitus script developer insulin use: with intermediate use Diabetes mellitus type: type 2 Qualified Code(s): E11.9 - Type 2 diabetes mellitus without complications; Z79.4 - torch heater (current) use of insulin Code(s): E11.9 - Type 2 diabetes mellitus without complications Status: Acute Plan Bilateral knee effusions. Likely inflammatory RA flair. Cultures remain negative. Spoke with Dr. Mendosa who agrees that patient would benefit from bilateral knee joint aspiration and steroid injections. Risks, benefits, alternatives to steroid injections discussed. Will inject Depo-Medrol 80 mg in each knee today. Subjective Subjective Date/Time Seen: 09/15/22 14:44 Interval history: Patient notes no improvement of pain. Notes that now the left knee is hurting more than the right. Review of Systems Review of Systems: All systems reviewed & are unremarkable except as noted in HPI and below Exam Narrative: Alert and oriented x3. Overweight 51 y/o female. Resting comfortably in bed. No varus or valgus deformity. Bilateral effusions. Right slightly larger then left. No distal edema. Mild synovitis and swelling. No ecchymosis. Mild warmth in the right knee. No erythema. Diffuse tenderness bilaterally. Range of motion limited due to pain 0? to 45? bilaterally. MCL and LCL intact. No laxity with valgus or varus stress. No varicosities. Distal pulses palpable. Normal light touch sensation. No skin lesions. Objective Data Vital Signs Vital Signs: Vital Signs - 24 hr 09/14/22 21:43 09/14/22 20:00 09/15/22 06:00 Temperature 97.1 F L 98.5 F Pulse Rate 90 84 Respiratory Rate 16 14 Blood Pressure 146/88 H 126/69 Pulse Oximetry 100 100 Oxygen Delivery Room Air 09/15/22 09:20 09/15/22 14:00 Temperature 96.2 F L Pulse Rate 100 Respiratory Rate 16 Blood Pressure 154/81 H Pulse Oximetry 100 Oxygen Delivery Room Air Intake/Output Intake/Output: Intake & Output 09/13/22 09/13/22 09/14/22 09/15/22 00:59 23:59 23:59 23:59 Intake Total 2640 600 Output Total 1700 Balance 940 600 Meds/Results Medications: Active Medications Generic Name Dose Route Start Last Admin Trade Name Freq PRN Reason Stop Dose Admin Hydrocodone Bitart/Acetaminophen 1 tab 09/14/22 01:31 Hydrocodone/Acetaminophen (*Crx) 5-325 Mg Tablet BY MOUTH Q4H PRN Pain Albuterol 4 puff 09/14/22 01:31 Albuterol Sulfate (*Sp) Aerosol 1 Puff INHALATION QIDRT PRN shortness of breath or wheezing Amitriptyline HCl 75 mg 09/14/22 21:00 09/14/22 21:06 Amitriptyline Hcl 25 Mg Tablet PO 75 mg HS ANTHONY Administration Amlodipine Besylate 5 mg 09/14/22 09:00 09/15/22 09:24 Amlodipine Besylate 5 Mg Tablet PO 5 mg DAILY ANTHONY Administration Atorvastatin Calcium 40 mg 09/14/22 09:00 09/15/22 09:24 Atorvastatin 40 Mg Tablet PO 40 mg DAILY ANTHONY Administration Enoxaparin Sodium 40 mg 09/14/22 09:00 09/15/22 09:26 Enoxaparin 40 Mg/0.4 Ml Syringe SUB-Q 40 mg DAILY ANTHONY Administration Fenofibrate 160 mg 09/14/22 09:00 09/15/22 09:24 Fenofibrate 160 Mg Tablet PO 160 mg DAILY ANTHONY Administration Folic Acid 1 mg 09/14/22 09:00 09/15/22 09:24 Folic Acid 1 Mg Tablet PO 1 mg DAILY ANTHONY Administration Hydroxychloroquine Sulfa
[2022-09-15] MEDS: methylPREDNISolone ACETATE 80 MG/ML VIAL 160 MG IM (15:45)
--- NOTE | 2022-09-15 16:05 | PM.OP ---
Procedure Note - Brief Procedure Note - Brief Date of procedure: 09/15/22 Pre-op diagnosis: Bilateral knee pain Post-op diagnosis: Same Procedure performed: Aspiration and steroid injection of bilateral knees. Description of procedure: Joint Aspiration/Injection Left Knee: Pre-procedure care: Consent was obtained, Procedures/risks were explained, Questions were answered, Correct patient identified and Correct side and site confirmed Position: Laying Site Prepped: alcohol and povidone-iodine Injection Details right arthrocentesis major joint Knee joint Manual palpation Fluid: Serous Fluid Withdrawn (mL): 5 inflammatory fluid Injection: Depo-Medrol 80 Sterile Dressing: Kevon and Adhesive Post Procedure: Patient tolerated the procedure well Joint Aspiration/Injection Right Knee: Pre-procedure care: Consent was obtained, Procedures/risks were explained, Questions were answered, Correct patient identified and Correct side and site confirmed Position: Laying Site Prepped: alcohol and povidone-iodine Injection Details right arthrocentesis major joint Knee joint Manual palpation Fluid: Serous Fluid Withdrawn (mL): 5 inflammatory fluid Injection: Depo-Medrol 80 Sterile Dressing: Kevon and Adhesive Post Procedure: Patient tolerated the procedure well Surgeon: JHONNY Umaña
[2022-09-15 16:42] LABS: Glucose Point of Care 62 mg/dl (65-105)
[2022-09-15] MEDS: HYDROcodone/acetaminophen (*CRX) 5-325 MG TABLET 1 TAB BY MOUTH ×2 (17:26→21:30)
[2022-09-15] MEDS: AMITRIPTYLINE HCL 25 MG TABLET 75 MG PO (20:30)
[2022-09-15 21:10] LABS: Glucose Point of Care 205 mg/dl (65-105)
[2022-09-15 21:34] VITALS: BP 145/80; PULSE 98; RESP 14; TEMP 36.1; O2SAT 98
[2022-09-16] MEDS: AZTREONAM 2 GM in SODIUM CHLORIDE 0.9% IV 100 ML 200 ML IVPB (04:05)
[2022-09-16 05:30] VITALS: BP 131/82; PULSE 82; RESP 14; TEMP 36.1; O2SAT 99
[2022-09-16 07:34] LABS: Glucose Point of Care 109 mg/dl (65-105)
[2022-09-16] MEDS: PREGABALIN (*CRX) 75 MG CAPSULE PO (08:44)
[2022-09-16] MEDS: ENOXAPARIN 40 MG/0.4 ML SYRINGE SUB-Q (08:44)
[2022-09-16] MEDS: lisinopriL 20 MG TABLET 40 MG PO (08:44)
[2022-09-16] MEDS: ATORVASTATIN 40 MG TABLET PO (08:45)
[2022-09-16] MEDS: FENOFIBRATE 160 MG TABLET PO (08:45)
[2022-09-16] MEDS: amLODIPine BESYLATE 5 MG TABLET PO (08:45)
[2022-09-16] MEDS: HYDROXYCHLOROQUINE SULFATE 200 MG TABLET PO (08:45)
[2022-09-16] MEDS: FOLIC ACID 1 MG TABLET PO (08:45)
[2022-09-16 11:11] LABS: Glucose Point of Care 168 mg/dl (65-105)
--- NOTE | 2022-09-16 12:28 | PM.DS ---
DS: Admitting Diagnosis Discharge Date 09/16/2022 Admitting Diagnosis R knee pain DS: Discharge Diagnosis Discharge Diagnosis (1) Effusion, right knee: Code(s): M25.461 - Effusion, right knee Status: Acute Assessment and Plan: s/p I&D. Ortho on board. gram stain negative. preliminary cultures are negative . Continue aztreonam, vancomycin. Can stop IV ABX and DC without ABX (2) Hypertension: Code(s): I10 - Essential (primary) hypertension Status: Acute Assessment and Plan: Stable. Continue home medications (3) Rheumatoid arthritis: Qualifiers: Rheumatoid arthritis location: unspecified site Rheumatoid factor presence: unspecified presence Qualified Code(s): M06.9 - Rheumatoid arthritis, unspecified Code(s): M06.9 - Rheumatoid arthritis, unspecified Status: Acute Assessment and Plan: Continue home medications pt changing to Dr Prince care (4) Diabetes mellitus: Qualifiers: Diabetes mellitus complication status: without complication Diabetes mellitus roasterman insulin use: with senior living use Diabetes mellitus type: type 2 Qualified Code(s): E11.9 - Type 2 diabetes mellitus without complications; Z79.4 - halfway (current) use of insulin Code(s): E11.9 - Type 2 diabetes mellitus without complications Status: Acute Assessment and Plan: Continue home regime metformin, ozempic and farxiga Plan Pt can follow with orthopedics if she wants DS: Summary Hospital Course Hospital Course: 51-year-old female with past medical history significant for rheumatoid arthritis, type diabetes mellitus, hypertension, dyslipidemia.? Patient presents to the emergency room due to right knee swelling and tenderness which has been progressively getting worse over the course of the last 2 weeks states that a feels tight and she was not able to tie her shoelaces. Pt doing better started on IV abx here seen by orthopedics had bilateral knee injections steroid injection which has helped her. Pt is ready to go home. Time Spent with Patient Time attestation: Total time spent providing and/or coordinating discharge services: Exam Const: General: comfortable, no acute distress, well developed, alert, awake and average body habitus Nutritional Appearance: average body habitus Orientation/consciousness: patient oriented x3 Extrem: General: normal to inspection, full ROM, no joint enlargement and no pedal edema Right lower extremity: knee (Both knee less swollen not red or hot ) DS: Data Data Completed and Pending Labs on day of discharge: Labs from last 24 hours 09/16/22 09/16/22 09/15/22 11:07 07:28 21:07 POC Capillary Glucose 168 H 109 H 205 H 09/15/22 16:37 POC Capillary Glucose 62 L Preliminary micro results at discharge 09/13/22 17:58 Anaerobic Culture - Preliminary Synovial Fluid Right Knee Aerobic Culture - Preliminary Discharge Plan Discharge Attending physician on discharge: Leonora Fuentes Consulting providers: Weston Mendosa Discharging Clinician: Leonora Fuentes Anticipated Discharge Date/Time: 09/16/22 12:26 Patient Disposition: Home, Self-Care Activity: as tolerated Diet: diabetic Discharge Instructions: sp bilateral joint injections in knees pt can follow with DR Mendosa orthopedic- office if she wishes to Patient Instructions: Antibiotic Form, Cortisone (Injection), Rheumatoid Arthritis (DC), Joint Aspiration (DC) Stand Alone Forms: General Discharge Information Follow-up/Referrals: SIERRA,PETR NAVARRO [Primary Care Provider] - (in 1 -2 weeks time) Discharge Medications: Continued amitriptyline 50 mg tablet 75 mg PO HS losartan 50 mg tablet 50 mg PO DAILY atorvastatin 40 mg tablet 40 mg PO DAILY hydrocodone-acetaminophen 5-325 mg tablet See Rx Instructions .ROUTE .COMPLEX PRN (Reason: Pain) Rx Instruct
[2022-09-19 14:10] LABS: Glucose Synovial Fluid 76 mg/dL
[2022-09-25 08:19] LABS: Total Protein Synovial Fluid 5.1
== END 2022-09-16 14:25 | disposition home or self-care (01) ==
LOC: ANHED 20:23 → ANH3MEDSUR 21:53
PROVIDERS: Nurse Practitioner; Physician Assistant; Admitting Provider Internal Medicine; Emergency Provider Emergency Medicine; PCP Nurse Practitioner Family; Visit Provider Hospitalist
DX: M06.9 Rheumatoid arthritis, unspecified (principal); E11.9 Type 2 diabetes mellitus without complications; K21.9 Gastro-esophageal reflux disease without esophagitis; I10 Essential (primary) hypertension; D64.9 Anemia, unspecified; J45.909 Unspecified asthma, uncomplicated; E78.5 Hyperlipidemia, unspecified; E66.9 Obesity, unspecified; Z68.35 Body mass index [BMI] 35.0-35.9, adult; Z20.822 Contact with and (suspected) exposure to COVID-19; Z79.51 Long term (current) use of inhaled steroids; Z79.84 Long term (current) use of oral hypoglycemic drugs; Z79.899 Other long term (current) drug therapy; Z79.891 Long term (current) use of opiate analgesic; Z83.3 Family history of diabetes mellitus; Z82.61 Family history of arthritis; Z83.6 Family history of other diseases of the respiratory system; Z82.49 Family history of ischemic heart disease and other diseases of the circulatory system
CPT/HCPCS: 20610; 36415; 73564; 80053; 80202; 82565; 82945; 82948; 84157; 85025; 85055; 85652; 86140; 87070; 87075; 87076; 87205; 89051; 89060; 96365; 96366; 96375; 96376; 99285; A9270; G0378; J1040; J1650; J1815; J3370; U0003; U0005

== ENCOUNTER 2022-10-06 10:37 | Outpatient (CLI) | payer BC, SELFPAY ==
--- NOTE | ~2022-10-06 | XR_ITS ---
XR hand BI arthritis min 3V DATE: 10/06/2022 11:24 INDICATION: Rheumatoid arthritis TECHNIQUE: AP, lateral and oblique views of each hand COMPARISON: None FINDINGS: There is an erosion at the medial base of the proximal phalanx of the right fifth digit. No other erosions of either hand are evident. There is narrowing at interphalangeal joint suggesting os teoarthritis. No fracture, dislocation, periosteal reaction or bone destruction or chondrocalcinosis. IMPRESSION: Erosion the medial base of proximal phalanx of right fifth digit Reviewed, dictated and finalized at location B. [facility] [employer]
--- NOTE | ~2022-10-06 | XR_ITS ---
EXAM: XR foot LT standing 2V, XR foot RT standing 2V DATE: 10/06/2022 11:25 (accession [id number]), 10/06/2022 11:24 (accession [id number]) HISTORY: M06.9 - Rheumatoid arthritis, NEW DRAndria . COMPARISON: None available. FINDINGS: Decreased mineralization. No fracture or dislocation. No lytic or blastic lesion. Mild deg enerative changes bilaterally in the tibiotalar joints, multivitamin midfoot joints, and the first MT P joints. Moderate bilateral hallux valgus. Bilateral pes planus. Bilateral Achilles and plantar enth esopathy. Right os navicularis. No erosion or periosteal change. Soft tissues within normal limits. IMPRESSION: No radiographic findings of inflammatory arthropathy. Reviewed, dictated and finalized at location K. [facility] IMPRESSION: No radiographic findings of inflammatory arthropathy.
[2022-10-06 11:36] LABS: Hematocrit 31.4 % (37.0-47.0); Hemoglobin 9.5 g/dL (12.0-15.0); Immature Platelet Fraction Pct 12.2 % (0.9-11.2); Mean Corpuscular HGB Conc 30.3 g/dl (32-36); Mean Corpuscular Hemoglobin 18.1 pg (26-34); Mean Corpuscular Volume 59.8 fl (80-100); Platelet Count Result 244 k/mm3 (150-375); Red Blood Count 5.25 M/mm3 (4.2-5.4); Red Cell Distribution Width 20.7 % (11.5-14.5); White Blood Count 7.2 K/mm3 (4.5-10.0)
[2022-10-06 11:40] LABS: Add Urine Microscopic? YES; Appearance Urine Clear (Clear); Bacteria Urine Trace /hpf; Bilirubin Urine Negative (Negative); Blood Urine Negative (Negative); Color Urine Yellow (Yellow); Glucose Urine UA Negative (Negative); Ketones Urine Trace mg/dL (Negative); Leukocyte Esterase Ur Negative LEU/UL (Negative); Mucus Urine Few /lpf; Nitrate Urine Negative (Negative); Protein Urine Trace mg/dL (Negative); Squamous Epithelial Cell Urine Rare /hpf (Few)
[2022-10-06 11:52] LABS: Alanine Aminotransferase 12 U/L (6-35); Albumin Level 4.3 g/dL (3.5-5.1); Alkaline Phosphatase 88 U/L (38-126); Anion Gap 9 mmol/L (8-16); Aspartate Amino Transferase 17 U/L (14-36); Bilirubin,Total 0.3 mg/dL (0.2-1.3); Blood Urea Nitrogen 16 mg/dL (7-17); CRP < 0.5 mg/dL (<1.0); Calcium 8.8 mg/dL (8.4-10.2); Carbon Dioxide 27 mmol/L (22-30); Chloride 104 mmol/L (98-107); Estimated Glomerular Filt Rate > 60; Glucose 104 mg/dL (65-110); Potassium 3.9 mmol/L (3.4-5.0); Sodium 140 mmol/L (137-145)
[2022-10-06 12:36] LABS: Hepatitis B Surface Antigen Negative (Negative)
[2022-10-06 12:53] LABS: Hepatitis B Surface Anti Res Negative; Hepatitis C Virus Antibody Negative (Negative)
[2022-10-06 13:36] LABS: Erythrocyte Sedimentation Rate 57 mm/hr (0-20)
[2022-10-06 13:46] LABS: Rheumatoid Factor > 120.0 IU/ML (<12)
[2022-10-08 13:07] LABS: Anti Cyclic Citrullinated Pept 215 Units (<20)
[2022-10-08 14:33] LABS: NIL 0.03 IU/mL; Quantiferon TB Plus, 1T NEGATIVE (NEGATIVE)
[2022-10-09 03:42] LABS: Angiotensin Converting Enzyme 17 U/L (9-67)
== END 2022-10-06 10:38 | disposition home or self-care (01) ==
LOC: ANHLAB 10:39
PROVIDERS: PCP Nurse Practitioner Family; Visit Provider Internal Medicine
DX: M19.90 Unspecified osteoarthritis, unspecified site (principal); M06.9 Rheumatoid arthritis, unspecified
CPT/HCPCS: 36415; 73130; 73620; 80053; 81001; 82164; 85027; 85055; 85652; 86038; 86140; 86200; 86430; 86480; 86706; 86803; 87340

== ENCOUNTER 2022-11-26 12:48 | Outpatient (CLI) | payer BC, SELFPAY ==
[2022-11-26 13:07] LABS: Hematocrit 31.3 % (37.0-47.0); Hemoglobin 9.6 g/dL (12.0-15.0); Immature Platelet Fraction Pct 12.5 % (0.9-11.2); Mean Corpuscular HGB Conc 30.7 g/dl (32-36); Mean Corpuscular Hemoglobin 19.4 pg (26-34); Mean Corpuscular Volume 63.1 fl (80-100); Platelet Count Result 217 k/mm3 (150-375); Red Blood Count 4.96 M/mm3 (4.2-5.4); White Blood Count 5.6 K/mm3 (4.5-10.0)
[2022-11-26 16:26] LABS: Appearance Urine Slightly Cloudy (Clear); Bilirubin Urine Negative (Negative); Blood Urine Negative (Negative); Color Urine Yellow (Yellow); Glucose Urine UA Negative (Negative); Ketones Urine Negative (Negative); Leukocyte Esterase Ur Negative LEU/UL (Negative); Nitrate Urine Negative (Negative); Protein Urine Negative (Negative); Specific Grav Ur 1.025 (1.001-1.035); Urobilinogen Urine 0.2 mg/dL (<2.0)
[2022-11-26 16:30] LABS: Add Urine Microscopic? NO; Mucus Urine Rare /lpf; RBC Urine 0-2 /hpf (0-2); Squamous Epithelial Cell Urine Rare /hpf (Few)
[2022-11-26 17:02] LABS: Erythrocyte Sedimentation Rate 88 mm/hr (0-20)
[2022-11-26 20:27] LABS: Alanine Aminotransferase 12 U/L (6-35); Albumin Level 4.1 g/dL (3.5-5.1); Alkaline Phosphatase 99 U/L (38-126); Anion Gap 4 mmol/L (8-16); Aspartate Amino Transferase 20 U/L (14-36); Bilirubin,Total 0.3 mg/dL (0.2-1.3); Blood Urea Nitrogen 8 mg/dL (7-17); CRP 0.8 mg/dL (<1.0); Calcium 8.6 mg/dL (8.4-10.2); Carbon Dioxide 29 mmol/L (22-30); Chloride 103 mmol/L (98-107); Estimated Glomerular Filt Rate > 60; Glucose 79 mg/dL (65-110); Potassium 3.6 mmol/L (3.4-5.0); Sodium 136 mmol/L (137-145)
== END 2022-11-26 12:49 | disposition home or self-care (01) ==
LOC: ANHLAB 12:49
PROVIDERS: Visit Provider Internal Medicine
DX: M19.90 Unspecified osteoarthritis, unspecified site (principal); M06.9 Rheumatoid arthritis, unspecified
CPT/HCPCS: 36415; 80053; 81003; 85027; 85055; 85652; 86140

== ENCOUNTER 2023-06-29 11:02 | Outpatient (CLI) | payer BC, SELFPAY ==
[2023-06-29 11:17] LABS: Hematocrit 32.9 % (37.0-47.0); Hemoglobin 10.4 g/dL (12.0-15.0); Mean Corpuscular HGB Conc 31.6 g/dl (32-36); Mean Corpuscular Hemoglobin 19.9 pg (26-34); Mean Corpuscular Volume 62.9 fl (80-100); Mean Platelet Volume 10.2 fl (7.4-10.4); Platelet Count Result 230 k/mm3 (150-375); Red Blood Count 5.23 M/mm3 (4.2-5.4); Red Cell Distribution Width 16.1 % (11.5-14.5); White Blood Count 8.2 K/mm3 (4.5-10.0)
[2023-06-29 12:00] LABS: Alanine Aminotransferase 23 U/L (6-35); Albumin Level 4.3 g/dL (3.5-5.1); Alkaline Phosphatase 91 U/L (38-126); Anion Gap 5 mmol/L (8-16); Aspartate Amino Transferase 28 U/L (14-36); Bilirubin,Total 0.3 mg/dL (0.2-1.3); Blood Urea Nitrogen 13 mg/dL (7-17); CRP < 0.5 mg/dL (<1.0); Calcium 9.2 mg/dL (8.4-10.2); Carbon Dioxide 29 mmol/L (22-30); Chloride 103 mmol/L (98-107); Estimated Glomerular Filt Rate > 60; Glucose 168 mg/dL (65-110); Potassium 4.1 mmol/L (3.4-5.0); Sodium 137 mmol/L (137-145)
[2023-06-29 12:04] LABS: Appearance Urine Clear (Clear); Blood Urine Negative (Negative); Color Urine Yellow (Yellow); Glucose Urine UA Negative (Negative); Ketones Urine Trace mg/dL (Negative); Nitrate Urine Negative (Negative); Protein Urine Trace mg/dL (Negative); Specific Grav Ur 1.033 (1.001-1.035); pH Urine 5.5 (5.0-9.0)
[2023-06-29 12:05] LABS: Bacteria Urine None Seen /hpf; Bilirubin Urine Negative (Negative); Leukocyte Esterase Ur Trace LEU/UL (Negative); Non Pathogenic Casts 0-2; RBC Urine 0-2 /hpf (0-2); Squamous Epithelial Cell Urine Few /hpf (Few)
[2023-06-29 12:24] LABS: Add Urine Microscopic? YES
[2023-06-29 12:37] LABS: Erythrocyte Sedimentation Rate 25 mm/hr (0-20)
== END 2023-06-29 11:03 | disposition home or self-care (01) ==
LOC: ANHLAB 11:04
PROVIDERS: Internal Medicine; Visit Provider Internal Medicine Hematology & Oncology
DX: M06.9 Rheumatoid arthritis, unspecified (principal)
CPT/HCPCS: 36415; 80053; 81001; 85027; 85652; 86140; 87086